=== PATIENT | female | born 2000 | race Two or more races ===

== ENCOUNTER → 2025-02-24 | Outpatient (CLI) | payer OTHER | LOC: M RAD 13:24 | PROVIDERS: ATTEND Student in an Organized Health Care Education/Training Program | DX: O28.8 Other abnormal findings on antenatal screening of mother (principal) ==

== ENCOUNTER → 2025-02-24 | Outpatient (REF) | payer OTHER | LOC: M PLALAB 11:34 | PROVIDERS: ATTEND Student in an Organized Health Care Education/Training Program | DX: Z34.80 Encounter for supervision of other normal pregnancy, unspecified trimester (principal) ==

== ENCOUNTER → 2025-03-01 | Outpatient (CLI) | payer OTHER | LOC: M RAD 15:13 | PROVIDERS: ATTEND Student in an Organized Health Care Education/Training Program | DX: O09.90 Supervision of high risk pregnancy, unspecified, unspecified trimester (principal) ==